=== PATIENT | male | born 1980 | race Caucasian/White ===

== ENCOUNTER 2018-03-03 14:51 | Emergency (ER) | payer OTHER ==
[~2018-03-03] VITALS: Ht 177.8 cm; Wt 97.5 kg
--- NOTE | 2018-03-03 16:53 | ED GENERAL ADULT ---
History of Present Illness General Chief Complaint: Laceration Procedure Stated Complaint: LAC Source: patient Exam Limitations: no limitations Vital Signs & Intake/Output Vital Signs & Intake/Output Vital Signs Date Time Temp Pulse Resp B/P B/P Pulse O2 O2 Flow FiO2 Mean Ox Delivery Rate 03/03 1823 98.1 97 18 137/90 96 Room Air Room Air 03/03 1455 98.0 102 18 153/90 97 Room Air Room Air Allergies Coded Allergies: NO KNOWN ALLERGIES (03/03/18) Triage Note: PT TO ED S/P "PUTTING GLASS GROWLERS IN CAR, AND CUT LEFT THUMB AND MIDDLE FINGERS" WOUNDS WRAPPED AT GREETERS DESK, NOT VISUALIZES AT THIS TIME, BLEEDING CONTROLLED AT PRESENT. LAST TETANUS: UNKNOWN. Triage Nurses Notes Reviewed? yes Onset: Abrupt Duration: minute(s): Timing: single episode today HPI: 37-year-old right hand dominant male with no significant past medical history presenting with lacerations to his left thumb and left middle finger sustained on glass just prior to arrival. Unsure of his last tetanus. Denies numbness or paresthesias. (Veronica Almeida) Past History Travel History Traveled to [place] past 21 day No Medical History Any Pertinent Medical History? see below for history Neurological: NONE EENT: NONE Cardiovascular: NONE Respiratory: NONE Gastrointestinal: GERD Hepatic: NONE Renal: NONE Musculoskeletal: HAND FRACTURE Psychiatric: NONE Endocrine: NONE Blood Disorders: NONE Cancer(s): NONE [employer]ENT[employer]IVE/Reproductive: NONE Surgical History Surgical History: non-contributory Psychosocial History What is your primary language [place] Tobacco Use: Never used ETOH Use: occasional use Illicit Drug Use: denies illicit drug use Family History Hx Contributory? No (Veronica Almieda) Review of Systems Review of Systems Constitutional: Reports: no symptoms. EENTM: Reports: no symptoms. Respiratory: Reports: no symptoms. Cardiovascular: Reports: no symptoms. GI: Reports: no symptoms. Genitourinary: Reports: no symptoms. Musculoskeletal: Reports: no symptoms. Skin: Reports: see HPI. Neurological/Psychological: Reports: no symptoms. Hematologic/Endocrine: Reports: no symptoms. Immunologic/Allergic: Reports: no symptoms. (Veronica Almeida) Physical Exam Physical Exam General Appearance: well developed/nourished, no apparent distress, alert, awake , comfortable Head: atraumatic, normal appearance Eyes: Bilateral: normal appearance. Neck: normal inspection Respiratory: normal breath sounds, lungs clear Cardiovascular: regular rate/rhythm Gastrointestinal: soft, non-tender Back: normal inspection Extremities: on exam of the left hand there is an L shaped laceration to the lateral aspect of the thumb and a linear laceration on the finger pad of the third digit distal to the DIP joint. Unrestricted range of motion at the DIP/ PIP/MCP and IP joints. Sensation intact to median/radial/ulnar nerves. Motor strength 5 out of 5 with digit flexion, extension, interosseous strength. Radial pulse 2+. Neurologic/Psych: awake, alert, oriented x 3, normal gait, normal mood/affect Skin: normal color, warm/dry Core Measures ACS in differential dx? No CVA/TIA Diagnosis: No Sepsis Present: No Sepsis Focused Exam Completed? No (Veronica Almeida) Progress Differential Diagnoses I considered the following diagnoses in my evaluation of the patient: [Skin laceration versus foreign body versus tendon injury versus nerve injury versus vascular injury versus fracture] Plan of Care: X-ray was unremarkable, no fractures or foreign bodies. Both wounds were repaired with good skin approximation. Patient counseled on wound care and given strict return precautions. Will follow up in 7 days for suture removal. Initial ED EKG: none (Veronica Almeida) Departure Departure Disposition: HOME OR SELF CARE Condition: Stable Clinical Impression Primary Impression: Finger laceration Referrals: Lucho Isaacs DO (PCP/Family) Additional Instructions: Keep the wounds clean and dry. Follow-up with your primary care provider for reevaluation. Return to the emergency department for suture removal in 7 days, or sooner for any new or worsening symptoms. Departure Forms: Customer Survey General Discharge Information (Veronica Almeida) PA/RN [facility] Co-Sign Statement Statement: ED Attending supervision documentation- I saw and evaluated the patient. I have also reviewed all the pertinent lab results and diagnostic results. I agree with the findings and the plan of care as documented in the PA's/RN [facility]'s documentation. x I have reviewed the ED Record and agree with the PA's/RN [facility]'s documentation. [] Additions or exceptions (if any) to the PAs/RN [facility]'s note and plan are summarized below: [] (Emilia ENGLISH,Garrett) Procedures Laceration/Wound Repair Laceration/Wound Repair: Wound Location: upper extremity (left thumb and middle fingers) Wound's Depth, Shape: irregular, linear Irrigated w/ Saline (ccs): 180 Betadine Prep? Yes Anesthesia: 1% lidocaine Suture Size/Type: 5:0, nylon Number of Sutures: 10 (3 thumb and 7 middle finger) Date of Last Tetanus: 03/03/18 Tetanus Status: up to date (Veronica Almeida) Critical Care Note Critical Care Note Critical Care Time: non-applicable (Veronica Almeida)
--- NOTE | 2018-03-03 18:03 | RADIOLOGY REPORT ---
EXAMINATION: XR HAND, LEFT CLINICAL INFORMATION: Laceration. Question fracture. COMPARISON: None TECHNIQUE: PA, lateral, and oblique views of the left hand. FINDINGS: There is no visible acute fracture, dislocation or subluxation. There is laceration distal and third digit. There is no underlying fracture or dislocation.. IMPRESSION: Laceration distal tip third digit. There is no visible fracture or dislocation left hand.
[2018-03-03 18:23] VITALS: BP 137/90
== END 2018-03-03 18:45 ==
LOC: ERH 14:51
DX: S61.213A Laceration without foreign body of left middle finger without damage to nail, initial encounter (principal); S61.012A Laceration without foreign body of left thumb without damage to nail, initial encounter; W25.XXXA Contact with sharp glass, initial encounter; Y92.9 Unspecified place or not applicable; Y93.89 Activity, other specified
CPT/HCPCS: 73130-LT; 90471; 90714; J2001